=== PATIENT | female | born 1995 | race African-American/Black ===

== ENCOUNTER 2016-07-19 20:33 | Emergency (ER) | payer OTHER ==
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
[~2016-07-19 20:33] MED LIST: ALBUTEROL MININEB; ALBUTEROL17 G1 IH; ALBUTEROL17 GM; ALBUTEROL17 GM INH; BIRTH CONTROL PILL; CAPITAL W/CODE473 ML PO; CONCERTA; CONCERTA PO; CONCERTA36 MG PO; FLOVENT7.9 GM INH; ORUDIS75 M1 PO; PREDNISONE PO; PREDNISONE10 MG PO; PROVENTIL17 GM IH; PULMICORT0.25 MG/2 IH; STERAPRED5 MG/DOSE1 PO; ZITHROMAX PO; ZITHROMAX1 G/PKT PO; ZYRTEC10 M2 PO
== END 2016-07-20 01:16 | disposition home or self-care (01) ==
LOC: CED 20:33 → CFTX 20:33
DX: S09.90XA Unspecified injury of head, initial encounter (principal); S76.012A Strain of muscle, fascia and tendon of left hip, initial encounter; S80.11XA Contusion of right lower leg, initial encounter; V43.92XA Unspecified car occupant injured in collision with other type car in traffic accident, initial encounter; Y92.410 Unspecified street and highway as the place of occurrence of the external cause
CPT/HCPCS: 70140; 70450; 73502; 73590; 99284